=== PATIENT | female | born 1940 | race Caucasian/White ===

== ENCOUNTER → 2018-03-06 | Outpatient (CLI) | payer MEDICARE, OTHER ==
[2018-03-06 13:34] LABS: Basophils # (A) 0.1 k/uL (0-0.2); Basophils % (A) 1 %; Eosinophils # (A) 0.2 k/uL (0-0.7); Eosinophils % (A) 2 %; HCT 38.3 % (34.0-46.0); HGB 12.3 gm/dL (11.4-16.0); Lymphocytes # (A) 4.1 k/uL (1.0-4.8); Lymphocytes % (A) 40 %; MCH 28.9 pg (25.0-35.0); MCHC 32.1 g/dL (31.0-37.0); MCV 90.1 fL (80.0-100.0); Mean Platelet Volume 7.2; Monocytes # (A) 0.7 k/uL (0-1.0); Monocytes % (A) 7 %; Neutrophils # (A) 4.8 k/uL (1.3-7.7); Neutrophils % (A) 47 %; Platelet Count 281 k/uL (150-450); RBC 4.25 m/uL (3.80-5.40); RDW 13.1 % (11.5-15.5); WBC 10.1 k/uL (3.8-10.6)
[2018-03-06 13:35] LABS: Calcium 9.8 mg/dL (8.4-10.2); Potassium 4.8 mmol/L (3.5-5.1)
[2018-03-06 13:50] LABS: T4, Free (Free Thyroxine) 1.13 ng/dL (0.78-2.19)
[2018-03-06 18:09] LABS: Iron Saturation 25.83 (12.00-45.00)
[2018-03-06 18:18] LABS: Vitamin D 25 Hydroxy 26.4 ng/mL (30.0-100.0)
[2018-03-06 18:21] LABS: DHEA Sulfate 38.5 ug/dL (26.0-430.0)
== END | disposition home or self-care (01) ==
LOC: LABWHC1 12:13
PROVIDERS: ATTEND Nurse Practitioner Family
DX: L65.0 Telogen effluvium (principal)
CPT/HCPCS: 36415; 82306; 82310; 82565; 82607; 82627; 83540; 83550; 84132; 84402; 84403; 84439; 84443; 84520; 85025; 86800

== ENCOUNTER → 2023-09-26 | Outpatient (CLI) | payer MEDICARE, OTHER ==
[2023-09-26 10:14] LABS: African American GFR (CKD) 89 (>60 ml/min/1.73 sqM); Blood Urea Nitrogen 32 mg/dL (7-17); Non-African American GFR(CKD) 77 (>60 ml/min/1.73 sqM)
--- NOTE | 2023-09-26 11:36 | CT ---
EXAMINATION TYPE: CT iac w con CT DLP: 142.70 mGycm, Automated exposure control for dose reduction was used. DATE OF EXAM: 09/26/2023 11:27 AM INDICATION: Patient age:Female; 83 years old; Reason for study: H93.19 TINNITUS, UNSPECIFIED EAR; PHH. COMPARISON: CT brain 02/02/2023. TECHNIQUE: Multiple thin axial images were obtained through the temporal bones and internal auditory canals. Additional coronal reformatted images were obtained. No IV contrast was utilized. FINDINGS: Right Temporal Bone: External Ear: There is some debris identified within the external auditory canal, The tympanic membra ne is present and unremarkable. Middle Ear: The ossicles demonstrate a normal appearance. Prussak's space is clear and the scutum i s intact. There is no evidence of osseous erosion and the tegmen tympani is intact. Inner Ear: Cochlea, vestibule and semi circular canals are unremarkable. No evidence of carotid bharat l dehiscence. Two and a half turns of the cochlea are identified. The vestibular aqueduct is not enl arged. Mastoid Air Cells: The mastoid air cells are clear. The tegmen mastoideum is intact. The aditus ad an trum is clear. Internal Auditory Canal: The internal auditory canal is unremarkable. Left Temporal Bone: External Ear: The external auditory canal is unremarkable, The tympanic membrane is present and unrem arkable. Middle Ear: The ossicles demonstrate a normal appearance. Prussak's space is clear and the scutum i s intact. There is no evidence of osseous erosion and the tegmen tympani is intact. Inner Ear: Cochlea, vestibule and semi circular canals are unremarkable. No evidence of carotid bharat l dehiscence. Two and a half turns of the cochlea are identified. The vestibular aqueduct is not enl arged. Mastoid Air Cells: The mastoid air cells are clear. The tegmen mastoideum is intact. The aditus ad an trum is clear. Internal Auditory Canal: The internal auditory canal is unremarkable. IMPRESSION: 1. No CT evidence for significant abnormality. 2. Likely cerumen within the right external auditory canal.
== END | disposition home or self-care (01) ==
LOC: RADCTMAIN 09:38
PROVIDERS: ATTEND Otolaryngology
DX: H93.19 Tinnitus, unspecified ear (principal); H91.90 Unspecified hearing loss, unspecified ear
CPT/HCPCS: 82565; 84520; 70481; 36415; Q9967